=== PATIENT | male | born 1960 | race Caucasian/White ===

== ENCOUNTER 2017-12-30 19:13 | Emergency (ER) | payer MEDICAID, OTHER ==
[~2017-12-30] VITALS: Ht 167.6 cm; Wt 85.8 kg
[2017-12-30 19:15] VITALS: BP 146/87
[2017-12-30] MEDS ORDERED: PROPARACAINE OPHTH 0.5%, 15ML EACHEYE ONE (19:30)
[2017-12-30] MEDS ORDERED: FLUORESCEIN OPHTHALMIC 1 MG STRIP EACHEYE ONE (19:30)
[2017-12-30] MEDS ORDERED: PROPARACAINE OPHTH 0.5%, 15ML ONE (20:24)
[2017-12-30] MEDS ORDERED: FLUORESCEIN OPHTHALMIC 1 MG STRIP ONE (20:24)
== END 2017-12-30 21:46 | disposition home or self-care (01) ==
LOC: ED 21:00
DX: H10.023 Other mucopurulent conjunctivitis, bilateral (principal); M06.9 Rheumatoid arthritis, unspecified; I10 Essential (primary) hypertension
CPT/HCPCS: 99283

== ENCOUNTER 2019-01-21 17:09 | Inpatient (IN) | payer MEDICAID ==
[~2019-01-21] VITALS: Ht 167.6 cm; Wt 77.0 kg
[2019-01-21] MEDS ORDERED: LIDOCAINE 1%, 10ML INFIL ONE (17:30)
--- NOTE | 2019-01-21 17:38 | NUR ---
PT PLACED ON BP CUFF, PULSE OX, HEART MONITOR. IV PLACED, LABS DRAWN WITH START. PT STATES HE HAS BEEN "OFF DIABETES MEDS FOR 6-7 MONTHS". PT ALSO STATES HE NEVER CHECKS BLOOD SUGAR B/C D/T CATARACTS HE CAN'T SEE READING. PT UPDATED ON POC, MED REC COMPLETED. CALL LIGHT WITHIN REACH.
[2019-01-21] MEDS ORDERED: LIDOCAINE-MPF 1%, 5ML ONE (17:41)
[2019-01-21] MEDS ORDERED: ACETAMINOPHEN 325 MG TABLET ONE (17:41)
--- NOTE | 2019-01-21 17:46 | NUR ---
TASK RN: PIV ESTABLISHED. PT TOLERATED WITH NO COMPLICATIONS. BLOOD DRAWN.
[2019-01-21 17:51] LABS: PH, VENOUS 7.426 pH (7.320-7.420)
[2019-01-21 17:53] LABS: BASOPHILS # (AUTO) 0.01 x10^3/uL (0-0.1); BASOPHILS % (AUTO) 0 % (0-1); EOSINOPHILS # (AUTO) 0.34 x10^3/uL (0-0.4); EOSINOPHILS % (AUTO) 3 % (1-7); LYMPHOCYTES # (AUTO) 1.64 x10^3/uL (1-3.4); LYMPHOCYTES % (AUTO) 13 % (22-44); MD NO; MEAN CORPUSCULAR HEMOGLOBIN 31.3 pg (27.5-34.5); MEAN CORPUSCULAR VOLUME 91.8 fL (81-97); MEAN PLATELET VOLUME 8.9 fL (7.4-10.4); MONOCYTES # (AUTO) 0.96 x10^3/uL (0.2-0.8); MONOCYTES % (AUTO) 7 % (2-9); NEUTROPHILS # (AUTO) 10.19 x10^3/uL (1.8-6.8); NEUTROPHILS % (AUTO) 78 % (42-75); PLATELET COUNT 211 x10^3/uL (130-400); RED BLOOD COUNT 5.41 x10^6/uL (4.38-5.82); RED CELL DISTRIBUTION WIDTH 12.7 % (9.4-14.8)
[2019-01-21 17:57] LABS: MICROSCOPIC NOT IND
[2019-01-21] MEDS ORDERED: SODIUM CHLORIDE FLUSH 10ML SYR IVF ONE (18:00)
[2019-01-21] MEDS ORDERED: ACETAMINOPHEN 325 MG TABLET PO ONE (18:00)
[2019-01-21] MEDS ORDERED: SODIUM CHLORIDE 0.9% 1,000ML IVBOLUS ONE ×2 (18:00→20:00)
[2019-01-21 18:05] LABS: ALANINE AMINOTRANSFERASE 230 U/L (12-78); ALBUMIN 3.3 g/dL (3.4-5.0); ANION GAP 8 mmol/L (5-15); CALCIUM 8.8 mg/dL (8.5-10.1); CHLORIDE 91 mmol/L (98-107); CREATININE 1.38 mg/dL (0.7-1.3)
[2019-01-21 18:05] LABS: CULTURE INDICATED? NO
[2019-01-21 18:06] LABS: ALKALINE PHOSPHATASE 229 U/L (45-117); TOTAL PROTEIN 7.8 g/dL (6.4-8.2)
--- NOTE | 2019-01-21 18:11 | NUR ---
PT.'S BOLUS IS INFUSING. VITALS MONITORED. SUMANTH BENITEZ IS AT THE BEDSIDE DOING AND I & D. PT. IS VOIDING CLEAR, YELLOW URINE. VSS.
[2019-01-21 18:28] LABS: ACETONE, SERUM Negative (Negative)
[2019-01-21] MEDS ORDERED: INSULIN SINGLE DOSE, ER SQ-INSULIN ONE (18:41)
[2019-01-21] MEDS ORDERED: CEFTRIAXONE PMX 1GM/50ML 50 ML ONE (18:42)
--- NOTE | 2019-01-21 18:50 | NUR ---
PT SLEEPING INTERMITTENTLY, VSS. ROCEPHIN INFUSING AFTER VERIFICATION THAT BC X 2 DRAWN PRIOR.
[2019-01-21] MEDS ORDERED: SODIUM CHLORIDE 0.9% 1,000 ML IV ONE (19:00)
[2019-01-21] MEDS ORDERED: CEFTRIAXONE PMX 1GM/50ML 50 ML IVPB ONE (19:00)
[2019-01-21] MEDS ORDERED: INSULIN REGULAR 100 UNITS/ML, 3ML VIAL SQ-INSULIN ONE (19:00)
--- NOTE | 2019-01-21 19:23 | NUR ---
TP RN: PT HAS [facility] INSURANCE. SPOKE WITH CJ, AT [place] PT WAS DENIED TRANSFER.
--- NOTE | 2019-01-21 19:25 | NUR ---
TP RN: SPOKE WITH REYES PRATHER AT [facility]. PT WAS DENIED TRANSFER.
--- NOTE | 2019-01-21 19:27 | NUR ---
WATER PROVIDED, VSS/UPDATED IN COMPUTER.
[2019-01-21] MEDS ORDERED: SODIUM CHLORIDE FLUSH 10ML SYR IVF PRN (19:30)
--- NOTE | 2019-01-21 19:33 | NUR ---
FINGERSTICK GLUCOSE REPEAT-CONTINUES TO READ HIGH. Addendum: 01/21/19 at 1954 by CODY FS REPORTED TO ADMITTING MD.
--- NOTE | 2019-01-21 19:42 | NUR ---
ADMITTING IN TO SEE PT.
[2019-01-21] MEDS ORDERED: DEXTROSE 50%, 50ML SYRINGE IVPush PRN (20:00)
[2019-01-21] MEDS ORDERED: ONDANSETRON 2MG/ML, 2ML IVPush PRN (20:00)
[2019-01-21] MEDS ORDERED: CEFTRIAXONE PMX 1GM/50ML 50 ML IV SCH (20:00)
[2019-01-21] MEDS ORDERED: DEXTROSE 4 GM TAB.CHEW PO PRN (20:00)
[2019-01-21] MEDS ORDERED: GLUCAGON 1 MG IM PRN (20:00)
[2019-01-21 20:45] LABS: ANION GAP 9 mmol/L (5-15); CALCIUM 8.2 mg/dL (8.5-10.1); CHLORIDE 100 mmol/L (98-107); CREATININE 1.11 mg/dL (0.7-1.3)
--- NOTE | 2019-01-21 20:51 | NUR ---
REPORT TO CRISTOBAL CHAMBERS.
[2019-01-21 20:53] LABS: AMPHETAMINE SCREEN, URINE Positive (Negative); BARBITURATE SCREEN, URINE Negative (Negative); BENZODIAZEPINE SCREEN, URINE Negative (Negative); CANNABINOID SCREEN, URINE Positive (Negative); COCAINE SCREEN, URINE Negative (Negative); METHADONE SCREEN, URINE Negative (Negative); OPIATE SCREEN, URINE Negative (Negative)
[2019-01-21 20:56] LABS: HEMOGLOBIN A1C 12.9 % (4.2-6.3)
[2019-01-21 21:00] VITALS: BP 118/74
[2019-01-21] MEDS ORDERED: VANCOMYCIN PER PHARMACY MC PRN (21:00)
[2019-01-21] MEDS: SODIUM CHLORIDE 0.9% 1,000 ML IV SCH (21:42)
[2019-01-21] MEDS: SODIUM CHLORIDE FLUSH 10ML SYR IVF SCH (21:44)
[2019-01-21] MEDS: HEPARIN 5,000 UNITS/ML, 1ML SQ SCH (21:47)
[2019-01-21] MEDS: INSULIN LISPRO 100 UNITS/ML, PEN SQ-INSULIN SCH (21:51)
[2019-01-21] MEDS: VANCOMYCIN 1,500 MG in SODIUM CHLORIDE 0.9% 250 ML IV SCH (21:59)
[2019-01-21] MEDS ORDERED: PHARMACOKINETIC CONSULTATION MC ONE (22:00)
[2019-01-21] MEDS ORDERED: PHARMACOKINETIC MONITORING MC PRN (22:00)
[2019-01-21] MEDS ORDERED: NICOTINE 21 MG/24 HR PATCH.TD24 TD ONE (22:30)
[2019-01-22] MEDS: INSULIN LISPRO 100 UNITS/ML, PEN SQ-INSULIN SCH ×5 (00:13→21:26)
[2019-01-22 01:15] LABS: ANION GAP 9 mmol/L (5-15); CHLORIDE 107 mmol/L (98-107); CREATININE 1.03 mg/dL (0.7-1.3)
[2019-01-22] MEDS: INSULIN GLARGINE 100 UNITS/ML, PEN SQ-INSULIN SCH ×2 (01:17→21:25)
[2019-01-22] MEDS: SODIUM CHLORIDE 0.9% 1,000 ML IV SCH ×3 (01:17→21:10)
[2019-01-22] MEDS ORDERED: POTASSIUM CHLORIDE 20 MEQ TAB.ER.PRT PO ONE (02:00)
[2019-01-22] MEDS ORDERED: D5%-0.45NACL+KCL 20MEQ 1,000 ML IV SCH (02:11)
[2019-01-22 04:00] VITALS: BP 125/75
[2019-01-22 04:38] LABS: BASOPHILS # (AUTO) 0.13 x10^3/uL (0-0.1); BASOPHILS % (AUTO) 1 % (0-1); CHLORIDE 106 mmol/L (98-107); EOSINOPHILS # (AUTO) 0.61 x10^3/uL (0-0.4); EOSINOPHILS % (AUTO) 5 % (1-7); LYMPHOCYTES # (AUTO) 2.34 x10^3/uL (1-3.4); LYMPHOCYTES % (AUTO) 20 % (22-44); MD NO; MEAN CORPUSCULAR HEMOGLOBIN 31.6 pg (27.5-34.5); MEAN CORPUSCULAR HGB CONC 34.5 g/dL (33.2-36.2); MEAN CORPUSCULAR VOLUME 91.7 fL (81-97); MEAN PLATELET VOLUME 8.3 fL (7.4-10.4); MONOCYTES % (AUTO) 9 % (2-9); NEUTROPHILS % (AUTO) 65 % (42-75); PLATELET COUNT 182 x10^3/uL (130-400); RED BLOOD COUNT 4.68 x10^6/uL (4.38-5.82); RED CELL DISTRIBUTION WIDTH 12.8 % (9.4-14.8)
[2019-01-22] MEDS: HEPARIN 5,000 UNITS/ML, 1ML SQ SCH ×3 (04:39→21:11)
[2019-01-22 04:46] LABS: ALANINE AMINOTRANSFERASE 175 U/L (12-78); ALBUMIN 2.5 g/dL (3.4-5.0); ALKALINE PHOSPHATASE 162 U/L (45-117); ANION GAP 7 mmol/L (5-15); BILIRUBIN,TOTAL 0.5 mg/dL (0.2-1.0); CALCIUM 7.9 mg/dL (8.5-10.1); CREATININE 0.93 mg/dL (0.7-1.3); TOTAL PROTEIN 6.1 g/dL (6.4-8.2)
[2019-01-22] MEDS: SODIUM CHLORIDE FLUSH 10ML SYR IVF SCH ×2 (09:11→21:11)
[2019-01-22] MEDS: AMPICILLIN/SULBACTAM 3 GM in SODIUM CHLORIDE 0.9% 100 ML IV SCH ×3 (09:42→21:36)
[2019-01-22] MEDS: VANCOMYCIN 1,500 MG in SODIUM CHLORIDE 0.9% 250 ML IV SCH ×2 (10:43→22:51)
[2019-01-22 14:26] VITALS: BP 106/64
[2019-01-22] MEDS ORDERED: CEFTRIAXONE PMX 1GM/50ML 50 ML IV SCH (18:00)
[2019-01-22 19:28] VITALS: BP 131/76
[2019-01-23 03:04] VITALS: BP 109/67
[2019-01-23] MEDS: AMPICILLIN/SULBACTAM 3 GM in SODIUM CHLORIDE 0.9% 100 ML IV SCH ×4 (03:53→22:14)
[2019-01-23] MEDS: HEPARIN 5,000 UNITS/ML, 1ML SQ SCH ×3 (05:05→21:47)
[2019-01-23 06:05] LABS: BASOPHILS # (AUTO) 0.06 x10^3/uL (0-0.1); BASOPHILS % (AUTO) 1 % (0-1); EOSINOPHILS # (AUTO) 0.85 x10^3/uL (0-0.4); EOSINOPHILS % (AUTO) 9 % (1-7); LYMPHOCYTES # (AUTO) 2.88 x10^3/uL (1-3.4); LYMPHOCYTES % (AUTO) 31 % (22-44); MD NO; MEAN CORPUSCULAR HEMOGLOBIN 31.1 pg (27.5-34.5); MEAN CORPUSCULAR HGB CONC 33.8 g/dL (33.2-36.2); MEAN CORPUSCULAR VOLUME 92.1 fL (81-97); MEAN PLATELET VOLUME 8.5 fL (7.4-10.4); MONOCYTES # (AUTO) 0.74 x10^3/uL (0.2-0.8); MONOCYTES % (AUTO) 8 % (2-9); NEUTROPHILS # (AUTO) 4.89 x10^3/uL (1.8-6.8); NEUTROPHILS % (AUTO) 52 % (42-75); PLATELET COUNT 178 x10^3/uL (130-400); RED BLOOD COUNT 5.08 x10^6/uL (4.38-5.82); RED CELL DISTRIBUTION WIDTH 12.8 % (9.4-14.8)
[2019-01-23 06:27] LABS: CHLORIDE 109 mmol/L (98-107)
[2019-01-23 06:47] LABS: % IRON SATURATION 31 % (20-55); ALANINE AMINOTRANSFERASE 158 U/L (12-78); ALBUMIN 2.3 g/dL (3.4-5.0); ALKALINE PHOSPHATASE 153 U/L (45-117); ANION GAP 6 mmol/L (5-15); BILIRUBIN,TOTAL 0.8 mg/dL (0.2-1.0); CALCIUM 8.2 mg/dL (8.5-10.1); CREATINE KINASE, TOTAL 89 U/L (39-308); CREATININE 0.91 mg/dL (0.7-1.3); IRON LEVEL 75 mcg/dL (65-175); TOTAL IRON BINDING CAPACITY 245 mcg/dL (250-450); TOTAL PROTEIN 6.1 g/dL (6.4-8.2)
[2019-01-23 07:59] VITALS: BP 113/69
[2019-01-23] MEDS: SODIUM CHLORIDE 0.9% 1,000 ML IV SCH ×2 (08:39→21:46)
[2019-01-23] MEDS: INSULIN LISPRO 100 UNITS/ML, PEN SQ-INSULIN SCH ×4 (08:40→21:48)
[2019-01-23] MEDS: SODIUM CHLORIDE FLUSH 10ML SYR IVF SCH ×2 (08:40→21:47)
[2019-01-23] MEDS: VANCOMYCIN 1,500 MG in SODIUM CHLORIDE 0.9% 250 ML IV SCH (11:02)
[2019-01-23 14:03] VITALS: BP 121/77
[2019-01-23] MEDS ORDERED: OMNIPAQUE 350 MG/ML, 100ML BOTTLE ONE (16:16)
[2019-01-23] MEDS ORDERED: MAGNESIUM HYDROXIDE 8%, 30ML UDC ONE (17:15)
[2019-01-23] MEDS: MAGNESIUM HYDROXIDE 8%, 30ML UDC PO PRN (17:16)
[2019-01-23] MEDS ORDERED: POLYETHYLENE GLYCOL 17 GM PACKET PO PRN (17:30)
[2019-01-23 21:08] VITALS: BP 135/72
[2019-01-23] MEDS: SENNA/DOCUSATE TABLET PO SCH (21:47)
[2019-01-23] MEDS: INSULIN GLARGINE 100 UNITS/ML, PEN SQ-INSULIN SCH (21:49)
[2019-01-24 00:45] VITALS: BP 108/66
[2019-01-24] MEDS: AMPICILLIN/SULBACTAM 3 GM in SODIUM CHLORIDE 0.9% 100 ML IV SCH ×4 (04:24→21:54)
[2019-01-24] MEDS: HEPARIN 5,000 UNITS/ML, 1ML SQ SCH ×3 (04:25→20:40)
[2019-01-24] MEDS: SODIUM CHLORIDE 0.9% 1,000 ML IV SCH (04:25)
[2019-01-24 04:45] LABS: BASOPHILS # (AUTO) 0.11 x10^3/uL (0-0.1); BASOPHILS % (AUTO) 1 % (0-1); EOSINOPHILS # (AUTO) 0.76 x10^3/uL (0-0.4); EOSINOPHILS % (AUTO) 9 % (1-7); LYMPHOCYTES # (AUTO) 2.69 x10^3/uL (1-3.4); LYMPHOCYTES % (AUTO) 33 % (22-44); MD NO; MEAN CORPUSCULAR HEMOGLOBIN 31.8 pg (27.5-34.5); MEAN CORPUSCULAR HGB CONC 34.4 g/dL (33.2-36.2); MEAN CORPUSCULAR VOLUME 92.5 fL (81-97); MEAN PLATELET VOLUME 8.3 fL (7.4-10.4); MONOCYTES # (AUTO) 0.74 x10^3/uL (0.2-0.8); MONOCYTES % (AUTO) 9 % (2-9); NEUTROPHILS # (AUTO) 3.88 x10^3/uL (1.8-6.8); NEUTROPHILS % (AUTO) 47 % (42-75); PLATELET COUNT 201 x10^3/uL (130-400); RED BLOOD COUNT 4.88 x10^6/uL (4.38-5.82); RED CELL DISTRIBUTION WIDTH 13.3 % (9.4-14.8)
[2019-01-24 04:55] LABS: ALBUMIN 2.3 g/dL (3.4-5.0); ANION GAP 5 mmol/L (5-15); CALCIUM 8.3 mg/dL (8.5-10.1); CHLORIDE 109 mmol/L (98-107)
[2019-01-24 04:59] LABS: ALANINE AMINOTRANSFERASE 165 U/L (12-78); ALKALINE PHOSPHATASE 176 U/L (45-117); BILIRUBIN,TOTAL 0.5 mg/dL (0.2-1.0); CREATININE 0.84 mg/dL (0.7-1.3); TOTAL PROTEIN 6.1 g/dL (6.4-8.2)
[2019-01-24] MEDS: MAGNESIUM HYDROXIDE 8%, 30ML UDC PO PRN (05:50)
[2019-01-24 07:43] VITALS: BP 125/77
[2019-01-24] MEDS: SENNA/DOCUSATE TABLET PO SCH ×2 (08:31→20:40)
[2019-01-24] MEDS: INSULIN LISPRO 100 UNITS/ML, PEN SQ-INSULIN SCH ×4 (08:31→20:41)
[2019-01-24] MEDS: SODIUM CHLORIDE FLUSH 10ML SYR IVF SCH ×2 (08:32→20:43)
[2019-01-24] MEDS ORDERED: ACETAMINOPHEN 325 MG TABLET PO PRN (13:30)
[2019-01-24] MEDS ORDERED: IBUPROFEN 200 MG TABLET PO PRN (14:00)
[2019-01-24 16:32] VITALS: BP 126/80
[2019-01-24 20:26] VITALS: BP 121/81
[2019-01-24] MEDS: INSULIN GLARGINE 100 UNITS/ML, PEN SQ-INSULIN SCH (20:42)
[2019-01-25 01:13] VITALS: BP 131/80
[2019-01-25] MEDS: AMPICILLIN/SULBACTAM 3 GM in SODIUM CHLORIDE 0.9% 100 ML IV SCH ×2 (04:21→10:35)
[2019-01-25] MEDS: HEPARIN 5,000 UNITS/ML, 1ML SQ SCH ×2 (04:27→12:53)
[2019-01-25 08:29] VITALS: BP 135/88
[2019-01-25] MEDS ORDERED: NICOTINE 21 MG/24 HR PATCH.TD24 TD SCH (09:00)
[2019-01-25] MEDS: SODIUM CHLORIDE FLUSH 10ML SYR IVF SCH (09:00)
[2019-01-25] MEDS: SENNA/DOCUSATE TABLET PO SCH (09:00)
[2019-01-25] MEDS: INSULIN LISPRO 100 UNITS/ML, PEN SQ-INSULIN SCH ×2 (09:24→12:08)
[2019-01-25] MEDS: INSULIN GLARGINE 100 UNITS/ML, PEN SQ-INSULIN SCH (09:24)
[2019-01-25] MEDS ORDERED: GLIP5TAB10 PO (13:15)
[2019-01-25] MEDS ORDERED: METF850T10 PO (13:15)
[2019-01-25] MEDS ORDERED: AMOX1TAB64 PO (13:16)
== END 2019-01-25 13:41 | disposition home or self-care (01) | DRG 871 ==
LOC: ED 19:17 → EDIP 19:20 → CCU 21:07 → 3NE 01-22 11:05 → DCLOUNGE 01-25 13:28
PROVIDERS: ADMIT Family Medicine; ATTEND Internal Medicine
PROC: 0H98XZZ Drainage of Buttock Skin, External Approach (ICD-10-PCS; principal; 2019-01-21)
DX: A41.9 Sepsis, unspecified organism (principal); N17.0 Acute kidney failure with tubular necrosis; L02.31 Cutaneous abscess of buttock; B19.20 Unspecified viral hepatitis C without hepatic coma; I10 Essential (primary) hypertension; M06.9 Rheumatoid arthritis, unspecified; E11.65 Type 2 diabetes mellitus with hyperglycemia; E11.40 Type 2 diabetes mellitus with diabetic neuropathy, unspecified; B95.61 Methicillin susceptible Staphylococcus aureus infection as the cause of diseases classified elsewhere; E11.29 Type 2 diabetes mellitus with other diabetic kidney complication; F19.10 Other psychoactive substance abuse, uncomplicated; E11.36 Type 2 diabetes mellitus with diabetic cataract; Z72.0 Tobacco use; Z59.0 Homelessness; Z79.4 Long term (current) use of insulin; Z87.442 Personal history of urinary calculi; Z91.14 Patient's other noncompliance with medication regimen; Z91.19 Patient's noncompliance with other medical treatment and regimen
CPT/HCPCS: 36415; 99285; J3490; 72193; 80048; 80053; 80074; 80307; 81003; 82010; 82550; 82803; 82947; 82962; 83036; 83540; 83550; 83605; 83735; 83930; 84100; 84443; 85025; 87040; 87070; 87075; 87076; 87077; 87081; 87147; 87186; 87205; 87521; 93005; 96365; 96372; G0378; J0295; J0696; J1644; J3370; Q9967; J3480; J7030; J7050

== ENCOUNTER 2020-03-23 10:58 | Inpatient (IN) | payer MEDICAID ==
[~2020-03-23] VITALS: Ht 167.6 cm; Wt 76.0 kg
[~2020-03-23 10:58] MED LIST: AMOX1TAB64 PO; GLIP5TAB10 PO; METF850T10 PO
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
--- NOTE | 2020-03-23 11:32 | NUR ---
DR DEL RIO AT BEDSIDE TO BRITT PT
--- NOTE | 2020-03-23 11:37 | NUR ---
REPORT TO TIERRA CHAMBERS
[2020-03-23 11:59] LABS: FIO2 ROOM AIR %
[2020-03-23 12:00] LABS: PH, VENOUS 7.372 pH (7.320-7.420)
[2020-03-23] MEDS ORDERED: SODIUM CHLORIDE FLUSH 10ML SYR IVF ONE (12:00)
[2020-03-23] MEDS ORDERED: SODIUM CHLORIDE 0.9% 1,000ML IVBOLUS ONE ×2 (12:00→12:30)
[2020-03-23 12:04] LABS: BASOPHILS # (AUTO) 0.14 x10^3/uL (0-0.1); BASOPHILS % (AUTO) 2 % (0-1); EOSINOPHILS # (AUTO) 0.55 x10^3/uL (0-0.4); EOSINOPHILS % (AUTO) 6 % (1-7); LYMPHOCYTES # (AUTO) 1.99 x10^3/uL (1-3.4); LYMPHOCYTES % (AUTO) 21 % (22-44); MD NO; MEAN CORPUSCULAR HEMOGLOBIN 31.2 pg (27.5-34.5); MEAN CORPUSCULAR HGB CONC 33.7 g/dL (33.2-36.2); MEAN CORPUSCULAR VOLUME 92.8 fL (81-97); MEAN PLATELET VOLUME 9.1 fL (7.4-10.4); MONOCYTES # (AUTO) 0.62 x10^3/uL (0.2-0.8); MONOCYTES % (AUTO) 6 % (2-9); NEUTROPHILS % (AUTO) 66 % (42-75); PLATELET COUNT 146 x10^3/uL (130-400); RED BLOOD COUNT 5.29 x10^6/uL (4.38-5.82)
[2020-03-23 12:10] LABS: ALBUMIN 3.1 g/dL (3.4-5.0); ANION GAP 11 mmol/L (5-15); CHLORIDE 97 mmol/L (98-107)
[2020-03-23 12:10] LABS: MICROSCOPIC NOT IND
[2020-03-23 12:12] LABS: CREATININE 1.32 mg/dL (0.7-1.3)
[2020-03-23 12:43] LABS: ACETONE, SERUM Negative (Negative)
--- NOTE | 2020-03-23 13:00 | NUR ---
URINAL PROVIDED, PT RESTING IN BED
[2020-03-23] MEDS ORDERED: INSULIN REGULAR 100 UNITS/ML, 3ML VIAL SQ-INSULIN ONE (14:00)
--- NOTE | 2020-03-23 14:10 | NUR ---
PT RESTING IN BED, CALL LIGHT IN REACH.
[2020-03-23] MEDS ORDERED: INSULIN SINGLE DOSE, ER ONE (14:20)
[2020-03-23] MEDS ORDERED: SODIUM CHLORIDE FLUSH 10ML SYR IVF PRN (14:30)
--- NOTE | 2020-03-23 16:41 | NUR ---
REPORT CALLED TO VJ CHAMBERS
[2020-03-23] MEDS ORDERED: ACETAMINOPHEN 325 MG TABLET PO PRN (18:30)
[2020-03-23 18:45] LABS: ANION GAP 7 mmol/L (5-15); CALCIUM 8.7 mg/dL (8.5-10.1); CHLORIDE 109 mmol/L (98-107); CREATININE 0.97 mg/dL (0.7-1.3)
[2020-03-23] MEDS: SODIUM CHLORIDE 0.9% 1,000 ML IV SCH (20:51)
[2020-03-23] MEDS ORDERED: INSULIN LISPRO 100 UNITS/ML, PEN SQ-INSULIN SCH (21:00)
[2020-03-23] MEDS ORDERED: INSULIN GLARGINE 100 UNITS/ML, PEN SQ-INSULIN SCH (21:00)
[2020-03-23] MEDS: ENOXAPARIN 40 MG/0.4 ML SQ SCH (21:11)
[2020-03-23 21:31] VITALS: BP 92/57
[2020-03-24 01:26] VITALS: BP 144/80
[2020-03-24 02:07] LABS: MICROSCOPIC NOT IND
[2020-03-24 05:09] LABS: BASOPHILS # (AUTO) 0.03 x10^3/uL (0-0.1); BASOPHILS % (AUTO) 0 % (0-1); EOSINOPHILS # (AUTO) 0.67 x10^3/uL (0-0.4); EOSINOPHILS % (AUTO) 7 % (1-7); LYMPHOCYTES # (AUTO) 2.77 x10^3/uL (1-3.4); LYMPHOCYTES % (AUTO) 29 % (22-44); MD NO; MEAN CORPUSCULAR HEMOGLOBIN 31.5 pg (27.5-34.5); MEAN CORPUSCULAR VOLUME 92.5 fL (81-97); MEAN PLATELET VOLUME 8.7 fL (7.4-10.4); MONOCYTES # (AUTO) 0.63 x10^3/uL (0.2-0.8); MONOCYTES % (AUTO) 7 % (2-9); NEUTROPHILS # (AUTO) 5.36 x10^3/uL (1.8-6.8); NEUTROPHILS % (AUTO) 57 % (42-75); PLATELET COUNT 143 x10^3/uL (130-400); RED BLOOD COUNT 5.11 x10^6/uL (4.38-5.82); RED CELL DISTRIBUTION WIDTH 13.2 % (9.4-14.8)
[2020-03-24 05:19] LABS: ANION GAP 6 mmol/L (5-15); CALCIUM 8.2 mg/dL (8.5-10.1); CHLORIDE 108 mmol/L (98-107); CREATININE 0.99 mg/dL (0.7-1.3)
[2020-03-24] MEDS: SODIUM CHLORIDE 0.9% 1,000 ML IV SCH ×4 (06:15→23:35)
[2020-03-24] MEDS: NICOTINE 14MG/24 HR PATCH.TD24 TD SCH (06:21)
[2020-03-24 06:51] VITALS: BP 146/85
[2020-03-24] MEDS ORDERED: INSULIN GLARGINE 100 UNITS/ML, PEN SQ-INSULIN ONE (07:30)
[2020-03-24] MEDS: LISINOPRIL 10 MG TABLET PO SCH (08:15)
[2020-03-24] MEDS: INSULIN LISPRO 100 UNITS/ML, PEN SQ-INSULIN SCH ×4 (08:15→20:48)
[2020-03-24] MEDS ORDERED: INSULIN LISPRO 100 UNITS/ML, PEN SQ-INSULIN SCH (11:00)
[2020-03-24 12:11] VITALS: BP 135/84
[2020-03-24] MEDS: ENOXAPARIN 40 MG/0.4 ML SQ SCH (18:41)
[2020-03-24 19:41] VITALS: BP 122/77
[2020-03-24] MEDS ORDERED: INSULIN GLARGINE 100 UNITS/ML, PEN SQ-INSULIN SCH (21:00)
[2020-03-25 00:54] VITALS: BP 138/86
[2020-03-25] MEDS: NICOTINE 14MG/24 HR PATCH.TD24 TD SCH (05:22)
[2020-03-25 05:57] LABS: BASOPHILS # (AUTO) 0.06 x10^3/uL (0-0.1); BASOPHILS % (AUTO) 1 % (0-1); EOSINOPHILS % (AUTO) 9 % (1-7); LYMPHOCYTES % (AUTO) 33 % (22-44); MD NO; MEAN CORPUSCULAR HEMOGLOBIN 31.9 pg (27.5-34.5); MEAN CORPUSCULAR HGB CONC 34.3 g/dL (33.2-36.2); MEAN PLATELET VOLUME 8.5 fL (7.4-10.4); MONOCYTES # (AUTO) 0.64 x10^3/uL (0.2-0.8); MONOCYTES % (AUTO) 7 % (2-9); NEUTROPHILS # (AUTO) 4.88 x10^3/uL (1.8-6.8); NEUTROPHILS % (AUTO) 52 % (42-75); PLATELET COUNT 138 x10^3/uL (130-400); RED BLOOD COUNT 5.33 x10^6/uL (4.38-5.82); RED CELL DISTRIBUTION WIDTH 13.1 % (9.4-14.8)
[2020-03-25 06:05] LABS: ANION GAP 11 mmol/L (5-15); CALCIUM 8.2 mg/dL (8.5-10.1); CHLORIDE 109 mmol/L (98-107)
[2020-03-25 06:07] LABS: CREATININE 0.91 mg/dL (0.7-1.3)
[2020-03-25] MEDS: SODIUM CHLORIDE 0.9% 1,000 ML IV SCH ×2 (06:16→13:12)
[2020-03-25 06:45] VITALS: BP 138/87
[2020-03-25] MEDS: LISINOPRIL 10 MG TABLET PO SCH (07:20)
[2020-03-25] MEDS: INSULIN LISPRO 100 UNITS/ML, PEN SQ-INSULIN SCH ×4 (07:21→21:14)
[2020-03-25 12:38] VITALS: BP 128/75
[2020-03-25] MEDS: ENOXAPARIN 40 MG/0.4 ML SQ SCH (16:31)
[2020-03-25 19:46] VITALS: BP 135/77
[2020-03-25] MEDS ORDERED: INSULIN GLARGINE 100 UNITS/ML, PEN SQ-INSULIN SCH (21:00)
[2020-03-26 01:53] VITALS: BP 125/75
[2020-03-26] MEDS: NICOTINE 14MG/24 HR PATCH.TD24 TD SCH (06:14)
[2020-03-26 06:48] VITALS: BP 134/76
[2020-03-26] MEDS: LISINOPRIL 10 MG TABLET PO SCH (08:52)
[2020-03-26] MEDS: INSULIN LISPRO 100 UNITS/ML, PEN SQ-INSULIN SCH ×2 (08:52→11:21)
[2020-03-26] MEDS ORDERED: INSULIN GLARGINE 100 UNITS/ML, PEN SQ-INSULIN SCH (10:00)
[2020-03-26 12:08] VITALS: BP 131/73
[2020-03-26] MEDS: ENOXAPARIN 40 MG/0.4 ML SQ SCH (16:00)
[2020-03-26] MEDS: metFORMIN 500 MG TABLET PO SCH ×2 (16:24→16:26)
[2020-03-26] MEDS ORDERED: INSULIN LISPRO 100 UNITS/ML, PEN SQ-INSULIN SCH (21:00)
== END 2020-03-26 18:12 | disposition left against medical advice (07) | DRG 637 ==
LOC: ED 14:04 → EDIP 14:09 → 3N 16:58
PROVIDERS: ADMIT Internal Medicine; ATTEND Internal Medicine
DX: E11.00 Type 2 diabetes mellitus with hyperosmolarity without nonketotic hyperglycemic-hyperosmolar coma (NKHHC) (principal); N17.0 Acute kidney failure with tubular necrosis; E72.51 Non-ketotic hyperglycinemia; E86.0 Dehydration; F12.10 Cannabis abuse, uncomplicated; F15.10 Other stimulant abuse, uncomplicated; F17.200 Nicotine dependence, unspecified, uncomplicated; H54.7 Unspecified visual loss; I10 Essential (primary) hypertension; M06.9 Rheumatoid arthritis, unspecified; H10.9 Unspecified conjunctivitis; H26.9 Unspecified cataract; R50.9 Fever, unspecified; R25.2 Cramp and spasm; B19.20 Unspecified viral hepatitis C without hepatic coma; R63.1 Polydipsia; Z59.0 Homelessness; Z79.4 Long term (current) use of insulin; Z87.442 Personal history of urinary calculi; Z91.14 Patient's other noncompliance with medication regimen; Z86.19 Personal history of other infectious and parasitic diseases; Z87.898 Personal history of other specified conditions; Z98.49 Cataract extraction status, unspecified eye
CPT/HCPCS: 36415; 71045; 80048; 81003; 82010; 82040; 82803; 82962; 83735; 84100; 85025; 93922; 99285; G0378; J1650; J1815; J7030

== ENCOUNTER 2020-04-15 10:45 | Emergency (ER) | payer MEDICAID ==
[~2020-04-15] VITALS: Ht 167.6 cm; Wt 91.0 kg
[2020-04-15] MEDS ORDERED: SODIUM CHLORIDE 0.9% 1,000 ML IV ONE (10:48)
[2020-04-15] MEDS ORDERED: SODIUM CHLORIDE 0.9% 1,000ML IVBOLUS ONE (11:00)
[2020-04-15] MEDS ORDERED: SODIUM CHLORIDE FLUSH 10ML SYR IVF ONE (11:00)
[2020-04-15 11:24] LABS: BASOPHILS # (AUTO) 0.01 x10^3/uL (0-0.1); BASOPHILS % (AUTO) 0 % (0-1); EOSINOPHILS # (AUTO) 0.36 x10^3/uL (0-0.4); EOSINOPHILS % (AUTO) 3 % (1-7); LYMPHOCYTES # (AUTO) 1.39 x10^3/uL (1-3.4); LYMPHOCYTES % (AUTO) 11 % (22-44); MD NO; MEAN CORPUSCULAR HEMOGLOBIN 30.9 pg (27.5-34.5); MEAN CORPUSCULAR HGB CONC 32.7 g/dL (33.2-36.2); MEAN CORPUSCULAR VOLUME 94.5 fL (81-97); MEAN PLATELET VOLUME 8.2 fL (7.4-10.4); MONOCYTES % (AUTO) 5 % (2-9); NEUTROPHILS # (AUTO) 10.01 x10^3/uL (1.8-6.8); NEUTROPHILS % (AUTO) 81 % (42-75); PLATELET COUNT 168 x10^3/uL (130-400); RED BLOOD COUNT 5.86 x10^6/uL (4.38-5.82); RED CELL DISTRIBUTION WIDTH 12.8 % (9.4-14.8)
[2020-04-15 11:38] LABS: ALANINE AMINOTRANSFERASE 291 U/L (12-78); ALBUMIN 3.8 g/dL (3.4-5.0); ANION GAP 9 mmol/L (5-15); CALCIUM 9.7 mg/dL (8.5-10.1); CHLORIDE 103 mmol/L (98-107); CREATININE 1.19 mg/dL (0.7-1.3)
[2020-04-15 11:40] LABS: ALKALINE PHOSPHATASE 185 U/L (45-117); TOTAL PROTEIN 8.3 g/dL (6.4-8.2)
[2020-04-15 11:59] LABS: ACETONE, SERUM Small (20mg/dL) (Negative)
[2020-04-15 12:21] LABS: MICROSCOPIC NOT IND
[2020-04-15 12:50] LABS: AMPHETAMINE SCREEN, URINE Positive (Negative); BARBITURATE SCREEN, URINE Negative (Negative); BENZODIAZEPINE SCREEN, URINE Negative (Negative); CANNABINOID SCREEN, URINE Positive (Negative); COCAINE SCREEN, URINE Negative (Negative); METHADONE SCREEN, URINE Negative (Negative); OPIATE SCREEN, URINE Negative (Negative)
[2020-04-15 14:22] VITALS: BP 119/74
== END 2020-04-15 14:24 | disposition home or self-care (01) ==
LOC: ED 14:15
DX: E11.65 Type 2 diabetes mellitus with hyperglycemia (principal); B19.20 Unspecified viral hepatitis C without hepatic coma; R94.5 Abnormal results of liver function studies; F15.10 Other stimulant abuse, uncomplicated; Z72.9 Problem related to lifestyle, unspecified; I10 Essential (primary) hypertension; M06.9 Rheumatoid arthritis, unspecified; F17.200 Nicotine dependence, unspecified, uncomplicated
CPT/HCPCS: 36415; 71045; 80053; 80307; 81003; 82010; 82800; 83036; 83690; 83735; 83930; 84100; 85025; 93005; 96360; 96361; 99285; J7030

== ENCOUNTER 2020-07-31 06:35 | Emergency (ER) | payer MEDICAID ==
[~2020-07-31] VITALS: Ht 167.6 cm; Wt 71.3 kg
[2020-07-31 06:40] VITALS: BP 133/75
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
[2020-07-31] MEDS ORDERED: OXYcodone/APAP 5/325MG TABLET PO ONE (07:00)
--- NOTE | 2020-07-31 07:01 | NUR ---
Anya JULIO has been to bedside for eval report to Blake CHAMBERS
[2020-07-31] MEDS ORDERED: OXYcodone/APAP 5/325MG TABLET ONE (07:02)
== END 2020-07-31 07:17 | disposition home or self-care (01) ==
LOC: ED 07:06
DX: L03.115 Cellulitis of right lower limb (principal); G89.28 Other chronic postprocedural pain; M79.661 Pain in right lower leg; I10 Essential (primary) hypertension; E11.9 Type 2 diabetes mellitus without complications; Z79.899 Other long term (current) drug therapy
CPT/HCPCS: 99283

== ENCOUNTER 2020-10-26 04:44 | Emergency (ER) | payer MEDICAID ==
[~2020-10-26] VITALS: Ht 167.6 cm; Wt 74.4 kg
[2020-10-26] MEDS ORDERED: CLIN75CA2 PO (05:25)
--- NOTE | 2020-10-26 06:10 | NUR ---
patient resting in bed c/o RLE pain. requesting renewal with abx. patient reports "my doctors think im a drug addict because i ask for pain medications". patient does report "i used meth 3 days ago to try to take the pain away and it didnt work". in NAD. no further needs. call thomas in reach. safety maintained.
--- NOTE | 2020-10-26 06:44 | NUR ---
PATIENT RESTING ON R SIDE "AM I GETTING ADMITTED?". PATIENT GIVEN WARM BLANKET. IN NAD. CALL PARKER IN REACH. SAFETY MAINTAINED. WILL CONTINUE TO MONITOR. WAITING FOR RLE XR READ
--- NOTE | 2020-10-26 06:49 | NUR ---
REPORT GIVEN TO ELAINE CHAMBERS/SANJUANITA CHAMBERS
--- NOTE | 2020-10-26 07:00 | NUR ---
RECVD REPORT FROM MICHELLE CHAMBERS
[2020-10-26] MEDS ORDERED: CEPHALEXIN 500 MG CAPSULE PO ONE (07:30)
[2020-10-26] MEDS ORDERED: CEPHALEXIN 500 MG CAPSULE ONE (08:21)
[2020-10-26 08:29] VITALS: BP 144/65
--- NOTE | 2020-10-26 10:03 | NUR ---
ADMINISTRATIVE SUPERVISOR: PT CAME BACK TO ER STATING THAT [facility] COULD NOT FILL HIS PERCOCET AND CEPHALEXIN D/T "INSURANCE ISSUES, SO I WENT TO [facility] AND THEY SAID THEY COULD FILL THEM BUT I NEED NEW PRESCRIPTIONS." DISCUSSED WITH DR. QUANG MD SENT ESCRIPT TO [facility] PER PT REQUEST FOR PERCOCET. PT PROVIDED PAPER SCRIPT FOR CEPHALEXIN TO FILL AT [facility]. [facility] CONTACTED, SPOKE WITH PHARMACY STAFF [facility] AND CANCELLED [facility]CRIP[facility] FOR PERCOCET/CEPHALEXIN PREVIOUSLY SENT THERE PER DR. DEL RIO. [facility] CONFIRMED CANCELLATION.
== END 2020-10-26 08:42 | disposition home or self-care (01) ==
LOC: ED 05:53
DX: S82.91 Unspecified fracture of right lower leg (principal); M96.89 Other intraoperative and postprocedural complications and disorders of the musculoskeletal system; I10 Essential (primary) hypertension; E11.9 Type 2 diabetes mellitus without complications; M06.9 Rheumatoid arthritis, unspecified; F17.200 Nicotine dependence, unspecified, uncomplicated; X58.XXXD Exposure to other specified factors, subsequent encounter
CPT/HCPCS: 99283

== ENCOUNTER 2020-10-31 10:04 | Inpatient (IN) | payer MEDICAID ==
[~2020-10-31] VITALS: Ht 167.6 cm; Wt 74.5 kg
[~2020-10-31 10:04] MED LIST changes: +CLIN75CA2 PO
[2020-10-31] MEDS ORDERED: CEPH-376 PO (10:17)
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
[2020-10-31] MEDS ORDERED: SODIUM CHLORIDE FLUSH 10ML SYR IVF ONE (10:30)
[2020-10-31] MEDS ORDERED: SODIUM CHLORIDE 0.9% 1,000ML IVBOLUS ONE ×2 (10:30→12:00)
[2020-10-31] MEDS ORDERED: ONDANSETRON 2MG/ML, 2ML IVPush ONE (10:30)
[2020-10-31] MEDS ORDERED: MORPHINE SULFATE 4 MG/ML, 1ML ONE ×2 (10:46→12:50)
[2020-10-31] MEDS ORDERED: ONDANSETRON 2MG/ML, 2ML ONE (10:46)
[2020-10-31] MEDS: MORPHINE SULFATE 4 MG/ML, 1ML IV PRN ×2 (10:50→12:54)
[2020-10-31] MEDS ORDERED: INSULIN REGULAR 100 UNITS/ML, 3ML VIAL SQ-INSULIN ONE (11:00)
--- NOTE | 2020-10-31 11:05 | NUR ---
fingerstick glucose s/p 1 L NS is 518. 10 U regular insulin admin sq with RN Ciera's verification. pt notes pain level 8/10 after morphine admin. awaiting labs and dispo. pt a&o, resps even and unlabored, call light in reach. 600mL clear yellow urine voided.
[2020-10-31 11:11] LABS: BASOPHILS % (AUTO) 1 % (0-1); EOSINOPHILS % (AUTO) 5 % (1-7); LYMPHOCYTES % (AUTO) 27 % (22-44); MEAN CORPUSCULAR HEMOGLOBIN 27.2 pg (27.5-34.5); MEAN CORPUSCULAR HGB CONC 33.8 g/dL (33.2-36.2); MEAN PLATELET VOLUME 7.9 fL (7.4-10.4); MONOCYTES % (AUTO) 7 % (2-9); NEUTROPHILS % (AUTO) 59 % (42-75); PLATELET COUNT 195 x10^3/uL (130-400); RED BLOOD COUNT 5.66 x10^6/uL (4.38-5.82); RED CELL DISTRIBUTION WIDTH 17.2 % (9.4-14.8)
[2020-10-31 11:12] LABS: MD NO
[2020-10-31 11:13] LABS: HCT (SEDRATE) 45.6 % (39.2-51.8)
[2020-10-31 11:19] LABS: ALANINE AMINOTRANSFERASE 88 U/L (12-78); ALBUMIN 3.2 g/dL (3.4-5.0); ANION GAP 10 mmol/L (5-15); C-REACTIVE PROTEIN, QUANT 0.07 mg/dL (0.02-0.49); CALCIUM 8.6 mg/dL (8.5-10.1); CHLORIDE 106 mmol/L (98-107); CREATININE 1.13 mg/dL (0.7-1.3)
[2020-10-31 11:21] LABS: ALKALINE PHOSPHATASE 231 U/L (45-117); BILIRUBIN,TOTAL 0.4 mg/dL (0.2-1.0); TOTAL PROTEIN 7.4 g/dL (6.4-8.2)
[2020-10-31 11:52] LABS: ACETONE, SERUM Trace (Negative)
[2020-10-31 12:02] LABS: PH, VENOUS 7.342 pH (7.320-7.420)
[2020-10-31 12:03] LABS: FIO2 RA %
--- NOTE | 2020-10-31 12:40 | NUR ---
tech at bedside for wound care.
--- NOTE | 2020-10-31 12:47 | NUR ---
hospitalist at bedside for admit assessment.
--- NOTE | 2020-10-31 13:01 | NUR ---
pt medicated for 9/10 right lower leg pain, see emar. SUMANTH Olivera at bedside to admit. repeat glucose 382, hospitalist aware. per SUMANTH Olivera, lantus to be administered tonight before bed. pt a&o, resps even and unlabored, nadn. wound care completed. SUMANTH Olivera notified pt meeting SIRS criteria of tachycardia (rate 92 at this time) and suspected source of infection (cellulitis). PA to order abx.
[2020-10-31] MEDS ORDERED: DEXTROSE 50%, 50ML SYRINGE IVPush PRN (13:30)
[2020-10-31] MEDS ORDERED: ONDANSETRON 2MG/ML, 2ML IVPush PRN (13:30)
[2020-10-31] MEDS ORDERED: GLUCAGON 1 MG IM PRN (13:30)
[2020-10-31] MEDS ORDERED: AMPICILLIN/SULBACTAM 3 GM in SODIUM CHLORIDE 0.9% 100 ML IV SCH (13:30)
[2020-10-31] MEDS ORDERED: ACETAMINOPHEN 325 MG TABLET PO PRN (13:30)
[2020-10-31] MEDS ORDERED: VANCOMYCIN PER PHARMACY MC PRN (13:30)
[2020-10-31] MEDS ORDERED: DEXTROSE 4 GM TAB.CHEW PO PRN (13:30)
--- NOTE | 2020-10-31 13:45 | NUR ---
report given to REYES Arora who is assuming care.
--- NOTE | 2020-10-31 14:05 | NUR ---
unasyn gtt initiated, blood cx drawn x 2 prior. RN boogie aware. pt a&o, resps even and unlabored. call light in reach. pt notes 9/10 pain to right lower ext, +3 dorsalis pulse palpated. pt appears comfortable, no acute distress noted.
[2020-10-31 14:15] LABS: INTERNATIONAL NORMALIZED RATIO 1.11 (0.93-1.1); PROTHROMBIN TIME 11.9 Seconds (9.6-11.5)
[2020-10-31] MEDS ORDERED: VANCOMYCIN 2,000 MG in SODIUM CHLORIDE 0.9% 500 ML IV ONE (15:00)
[2020-10-31] MEDS ORDERED: PHARMACOKINETIC MONITORING MC PRN (15:00)
[2020-10-31 15:07] VITALS: BP 150/81
[2020-10-31] MEDS: morphine SULFATE 10 MG/ML, 1ML IVPush PRN (15:23)
[2020-10-31] MEDS: SODIUM CHLORIDE 0.9% 1,000 ML IV SCH (15:24)
[2020-10-31] MEDS: HEPARIN 5,000 UNITS/ML, 1ML SQ SCH ×2 (15:24→22:29)
[2020-10-31] MEDS: INSULIN LISPRO 100 UNITS/ML, PEN SQ-INSULIN SCH ×2 (17:03→22:45)
[2020-10-31] MEDS: HYDROcodone/APAP 5/325 TABLET PO PRN ×2 (17:04→22:45)
[2020-10-31 18:15] LABS: MICROSCOPIC NOT IND
[2020-10-31 20:43] VITALS: BP 125/73
[2020-10-31] MEDS: INSULIN GLARGINE 100 UNITS/ML, PEN SQ-INSULIN SCH (22:45)
[2020-10-31] MEDS: SODIUM CHLORIDE FLUSH 10ML SYR IVF SCH (23:15)
[2020-10-31] MEDS: AMPICILLIN/SULBACTAM 3 GM in SODIUM CHLORIDE 0.9% 100 ML IV SCH (23:15)
[2020-11-01 02:00] VITALS: BP 128/75
[2020-11-01] MEDS: SODIUM CHLORIDE 0.9% 1,000 ML IV SCH (03:35)
[2020-11-01] MEDS: morphine SULFATE 10 MG/ML, 1ML IVPush PRN ×3 (03:36→19:18)
[2020-11-01] MEDS ORDERED: VANCOMYCIN 1,600 MG in SODIUM CHLORIDE 0.9% 250 ML IV ONE (04:00)
[2020-11-01 05:27] LABS: BASOPHILS % (AUTO) 1 % (0-1); EOSINOPHILS % (AUTO) 7 % (1-7); LYMPHOCYTES % (AUTO) 26 % (22-44); MEAN PLATELET VOLUME 7.5 fL (7.4-10.4); MONOCYTES % (AUTO) 9 % (2-9); NEUTROPHILS % (AUTO) 57 % (42-75); PLATELET COUNT 196 x10^3/uL (130-400); RED BLOOD COUNT 5.24 x10^6/uL (4.38-5.82); RED CELL DISTRIBUTION WIDTH 17.4 % (9.4-14.8)
[2020-11-01] MEDS: HEPARIN 5,000 UNITS/ML, 1ML SQ SCH ×3 (05:30→20:48)
[2020-11-01 05:33] LABS: CHLORIDE 113 mmol/L (98-107)
[2020-11-01 05:46] LABS: MD NO
[2020-11-01 06:02] LABS: ALANINE AMINOTRANSFERASE 87 U/L (12-78); ALBUMIN 2.8 g/dL (3.4-5.0); ALKALINE PHOSPHATASE 184 U/L (45-117); ANION GAP 6 mmol/L (5-15); BILIRUBIN,TOTAL 0.6 mg/dL (0.2-1.0); CALCIUM 8.2 mg/dL (8.5-10.1); CREATININE 0.85 mg/dL (0.7-1.3); TOTAL PROTEIN 6.6 g/dL (6.4-8.2)
[2020-11-01] MEDS: AMPICILLIN/SULBACTAM 3 GM in SODIUM CHLORIDE 0.9% 100 ML IV SCH ×3 (06:36→20:48)
[2020-11-01] MEDS: INSULIN LISPRO 100 UNITS/ML, PEN SQ-INSULIN SCH ×4 (07:00→23:11)
[2020-11-01] MEDS: INSULIN GLARGINE 100 UNITS/ML, PEN SQ-INSULIN SCH ×2 (07:29→23:11)
[2020-11-01] MEDS ORDERED: MAGNESIUM SULFATE PMX 2GM/50ML 50 ML IV ONE (07:30)
[2020-11-01] MEDS: SODIUM CHLORIDE FLUSH 10ML SYR IVF SCH ×2 (07:30→23:40)
[2020-11-01 08:09] VITALS: BP 154/91
[2020-11-01] MEDS ORDERED: VANCOMYCIN 1,600 MG in SODIUM CHLORIDE 0.9% 250 ML IV SCH (09:00)
[2020-11-01] MEDS: HYDROcodone/APAP 5/325 TABLET PO PRN ×2 (10:25→23:08)
[2020-11-01 13:20] VITALS: BP 137/83
[2020-11-01 20:44] VITALS: BP 158/84
[2020-11-01] MEDS: VANCOMYCIN 1,600 MG in SODIUM CHLORIDE 0.9% 250 ML IV SCH (23:40)
[2020-11-02 00:10] VITALS: BP 164/81
[2020-11-02] MEDS: morphine SULFATE 10 MG/ML, 1ML IVPush PRN ×5 (02:42→23:15)
[2020-11-02] MEDS: HEPARIN 5,000 UNITS/ML, 1ML SQ SCH ×3 (05:30→22:29)
[2020-11-02] MEDS: AMPICILLIN/SULBACTAM 3 GM in SODIUM CHLORIDE 0.9% 100 ML IV SCH ×3 (06:00→22:30)
[2020-11-02 06:33] LABS: BASOPHILS % (AUTO) 1 % (0-1); EOSINOPHILS % (AUTO) 7 % (1-7); LYMPHOCYTES % (AUTO) 38 % (22-44); MD NO; MEAN CORPUSCULAR HEMOGLOBIN 26.8 pg (27.5-34.5); MEAN CORPUSCULAR HGB CONC 33.1 g/dL (33.2-36.2); MEAN PLATELET VOLUME 7.3 fL (7.4-10.4); MONOCYTES % (AUTO) 9 % (2-9); NEUTROPHILS % (AUTO) 46 % (42-75); PLATELET COUNT 176 x10^3/uL (130-400); RED BLOOD COUNT 5.29 x10^6/uL (4.38-5.82); RED CELL DISTRIBUTION WIDTH 16.9 % (9.4-14.8)
[2020-11-02 06:43] LABS: ANION GAP 6 mmol/L (5-15); CALCIUM 8.4 mg/dL (8.5-10.1); CHLORIDE 109 mmol/L (98-107); CREATININE 0.88 mg/dL (0.7-1.3)
[2020-11-02] MEDS: INSULIN LISPRO 100 UNITS/ML, PEN SQ-INSULIN SCH ×4 (07:00→20:33)
[2020-11-02 08:10] VITALS: BP 165/94
[2020-11-02] MEDS: SODIUM CHLORIDE FLUSH 10ML SYR IVF SCH ×2 (08:24→20:35)
[2020-11-02] MEDS: HYDROcodone/APAP 5/325 TABLET PO PRN ×2 (11:59→20:34)
[2020-11-02 13:02] VITALS: BP 146/76
[2020-11-02] MEDS: VANCOMYCIN 1,600 MG in SODIUM CHLORIDE 0.9% 250 ML IV SCH (17:01)
[2020-11-02 19:25] VITALS: BP 150/78
[2020-11-02] MEDS: INSULIN GLARGINE 100 UNITS/ML, PEN SQ-INSULIN SCH (20:33)
[2020-11-03] MEDS: HYDROcodone/APAP 5/325 TABLET PO PRN ×5 (01:28→22:39)
[2020-11-03 02:54] VITALS: BP 142/80
[2020-11-03] MEDS: morphine SULFATE 10 MG/ML, 1ML IVPush PRN ×4 (04:10→20:08)
[2020-11-03] MEDS: AMPICILLIN/SULBACTAM 3 GM in SODIUM CHLORIDE 0.9% 100 ML IV SCH ×3 (06:01→21:50)
[2020-11-03] MEDS: HEPARIN 5,000 UNITS/ML, 1ML SQ SCH ×3 (06:29→22:38)
[2020-11-03 06:34] LABS: ANION GAP 5 mmol/L (5-15); CALCIUM 8.8 mg/dL (8.5-10.1); CHLORIDE 109 mmol/L (98-107); CREATININE 0.81 mg/dL (0.7-1.3)
[2020-11-03 06:35] LABS: BASOPHILS % (AUTO) 1 % (0-1); EOSINOPHILS % (AUTO) 8 % (1-7); LYMPHOCYTES % (AUTO) 42 % (22-44); MEAN CORPUSCULAR HEMOGLOBIN 26.8 pg (27.5-34.5); MEAN CORPUSCULAR HGB CONC 33.4 g/dL (33.2-36.2); MEAN PLATELET VOLUME 7.7 fL (7.4-10.4); MONOCYTES % (AUTO) 10 % (2-9); NEUTROPHILS % (AUTO) 39 % (42-75); PLATELET COUNT 192 x10^3/uL (130-400); RED CELL DISTRIBUTION WIDTH 17.2 % (9.4-14.8)
[2020-11-03 06:36] LABS: MD NO
[2020-11-03] MEDS: INSULIN LISPRO 100 UNITS/ML, PEN SQ-INSULIN SCH ×4 (07:00→20:18)
[2020-11-03 07:55] VITALS: BP 129/83
[2020-11-03] MEDS: SODIUM CHLORIDE FLUSH 10ML SYR IVF SCH ×2 (09:45→20:09)
[2020-11-03] MEDS: VANCOMYCIN 1,600 MG in SODIUM CHLORIDE 0.9% 250 ML IV SCH (10:19)
[2020-11-03 12:59] VITALS: BP 153/69
[2020-11-03] MEDS: INSULIN GLARGINE 100 UNITS/ML, PEN SQ-INSULIN SCH (20:18)
[2020-11-03 20:36] VITALS: BP 138/76
[2020-11-03] MEDS: VANCOMYCIN 1,400 MG in SODIUM CHLORIDE 0.9% 250 ML IV SCH (22:32)
[2020-11-04 01:03] VITALS: BP 152/88
[2020-11-04] MEDS: morphine SULFATE 10 MG/ML, 1ML IVPush PRN ×2 (01:09→07:11)
[2020-11-04] MEDS: HYDROcodone/APAP 5/325 TABLET PO PRN ×2 (03:06→10:12)
[2020-11-04] MEDS: AMPICILLIN/SULBACTAM 3 GM in SODIUM CHLORIDE 0.9% 100 ML IV SCH (05:45)
[2020-11-04] MEDS: INSULIN LISPRO 100 UNITS/ML, PEN SQ-INSULIN SCH ×3 (07:00→16:29)
[2020-11-04] MEDS: HEPARIN 5,000 UNITS/ML, 1ML SQ SCH ×2 (07:11→14:30)
[2020-11-04 07:35] VITALS: BP 150/85
[2020-11-04] MEDS: INSULIN GLARGINE 100 UNITS/ML, PEN SQ-INSULIN SCH (09:00)
[2020-11-04] MEDS: SODIUM CHLORIDE FLUSH 10ML SYR IVF SCH (09:00)
[2020-11-04] MEDS: VANCOMYCIN 1,400 MG in SODIUM CHLORIDE 0.9% 250 ML IV SCH (10:12)
[2020-11-04] MEDS ORDERED: SULFAMETH./TRIMETHOPRIM DS 800MG/160MG TABLET PO SCH (11:30)
[2020-11-04 14:28] VITALS: BP 149/79
== END 2020-11-04 17:47 | disposition left against medical advice (07) | DRG 638 ==
LOC: ED 10:18 → EDIP 11:51 → 3N 15:03
PROVIDERS: ADMIT Internal Medicine; ATTEND Internal Medicine
DX: E11.69 Type 2 diabetes mellitus with other specified complication (principal); M86.8X6 Other osteomyelitis, lower leg; L03.115 Cellulitis of right lower limb; E11.00 Type 2 diabetes mellitus with hyperosmolarity without nonketotic hyperglycemic-hyperosmolar coma (NKHHC); F15.90 Other stimulant use, unspecified, uncomplicated; F17.200 Nicotine dependence, unspecified, uncomplicated; I10 Essential (primary) hypertension; M06.9 Rheumatoid arthritis, unspecified; Z59.0 Homelessness; B19.20 Unspecified viral hepatitis C without hepatic coma; Z63.8 Other specified problems related to primary support group; Z79.2 Long term (current) use of antibiotics; Z79.4 Long term (current) use of insulin; Z82.49 Family history of ischemic heart disease and other diseases of the circulatory system; Z87.442 Personal history of urinary calculi; Z91.14 Patient's other noncompliance with medication regimen; Z20.822 Contact with and (suspected) exposure to COVID-19; Z88.8 Allergy status to other drugs, medicaments and biological substances; B96.89 Other specified bacterial agents as the cause of diseases classified elsewhere
CPT/HCPCS: 36415; 80048; 80053; 80202; 81003; 82010; 82803; 82962; 83036; 83605; 83735; 84100; 84443; 85025; 85610; 85651; 86140; 87040; 87070; 87077; 87186; 87205; 87635; 96361; 96374; 96375; 96376; 99285; G0378; J0295; J1644; J2405; J3370; J1815; J2270; J3475; J7030; J7040; J7050

== ENCOUNTER 2021-03-09 23:08 | Emergency (ER) | payer MEDICAID ==
[~2021-03-09] VITALS: Ht 170.2 cm; Wt 61.7 kg
[~2021-03-09 23:08] MED LIST changes: +CEPH-376 PO
--- NOTE | 2021-03-10 01:39 | NUR ---
PT TO ROOM VIA PERSONAL WHEELCHAIR
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
[2021-03-10] MEDS ORDERED: IBUPROFEN 800 MG TABLET ONE (02:27)
[2021-03-10] MEDS ORDERED: IBUPROFEN 800 MG TABLET PO ONE (02:30)
[2021-03-10 02:33] VITALS: BP 116/72
--- NOTE | 2021-03-10 02:34 | NUR ---
Patient given discharge instructions and they have confirmed that they understand the instructions. Patient ambulatory with steady gait.
== END 2021-03-10 02:38 | disposition home or self-care (01) ==
LOC: ED 03-10 02:35
DX: M79.661 Pain in right lower leg (principal); Z48.01 Encounter for change or removal of surgical wound dressing; I10 Essential (primary) hypertension; E11.9 Type 2 diabetes mellitus without complications; F17.200 Nicotine dependence, unspecified, uncomplicated
CPT/HCPCS: 99282